=== PATIENT | male | born 1965 | race African-American/Black ===

== ENCOUNTER 2016-07-02 15:40 | Emergency (ER) | payer SELFPAY ==
[~2016-07-02] VITALS: Ht 172.7 cm; Wt 77.4 kg
[2016-07-02] MEDS ORDERED: SODIUM CHLORIDE FLUSH 10ML SYR IVF ONE (16:00)
[2016-07-02] MEDS ORDERED: ONDANSETRON 2MG/ML, 2ML IVPush ONE (16:00)
[2016-07-02] MEDS ORDERED: ONDANSETRON 2MG/ML, 2ML ONE (16:29)
[2016-07-02] MEDS ORDERED: MORPHINE SULFATE 4 MG/ML, 1ML ONE ×2 (16:29→16:55)
[2016-07-02] MEDS ORDERED: SODIUM CHLORIDE 0.9% 1,000ML IV ONE (16:30)
[2016-07-02] MEDS: MORPHINE SULFATE 4 MG/ML, 1ML IVPush PRN ×2 (16:32→16:58)
[2016-07-02 17:26] LABS: ASPARTATE AMINO TRANSFERASE 13 U/L (15-37); BLOOD UREA NITROGEN 14 mg/dL (7-18)
[2016-07-02 17:46] LABS: PATH.CAST-FLAG NOT PRESENT; SPERM-FLAG NOT PRESENT; SRC-FLAG NOT PRESENT; XTAL-FLAG NOT PRESENT; YLC-FLAG NOT PRESENT
[2016-07-02 18:52] VITALS: BP 94/56
== END 2016-07-02 18:55 | disposition home or self-care (01) ==
LOC: ED 18:49
DX: R10.13 Epigastric pain (principal); S39.012A Strain of muscle, fascia and tendon of lower back, initial encounter; X58.XXXA Exposure to other specified factors, initial encounter; Y93.89 Activity, other specified; Y92.89 Other specified places as the place of occurrence of the external cause; Y99.8 Other external cause status
CPT/HCPCS: 36415; 72110; 80053; 81001; 83690; 85025; 96361; 96374; 96375; 99285; J2405; J7030